=== PATIENT | male | born 1985 | race Hispanic/Latino ===

== ENCOUNTER 2019-01-20 14:19 | Emergency (ER) | payer OTHER ==
[2019-01-20 14:34] VITALS: RESP 16
--- NOTE | 2019-01-20 16:50 | RAD ---
PROCEDURE: Left Knee Radiographs. Four views. HISTORY: knee pain COMPARISON: None available. FINDINGS: BONES: No acute displaced fracture. Well corticated small ossific density inferior to the patella may be related to remote injury. JOINTS: No dislocation. JOINT EFFUSION: No significant joint effusion. OTHER FINDINGS: None. IMPRESSION: No acute displaced fracture, dislocation, or significant joint effusion identified. If symptoms persist, or if there is continued clinical concern, x-ray follow-up in 7-10 days should be considered.
--- NOTE | 2019-01-20 17:00 | ED PDOC ---
Lower Extremity Pain/Injury Time Seen by Provider: 01/20/19 14:20 Chief Complaint (Nursing): Lower Extremity Problem/Injury Chief Complaint (Provider): Right Leg, Left Knee Pain History Per: Patient History/Exam Limitations: no limitations Onset/Duration Of Symptoms: Days (x1) Current Symptoms Are (Timing): Still Present Additional Complaint(s): 33 year old male presents to the ED for XR and MRI scans of his left knee and behind right knee radiating down the calf as per Dr. Mccord referral. Patient states yesterday he was playing softball fielding a ground ball when he went to stand up and felt his right knee/leg and left knee pop. Denies any other physical complaints, numbness, and tingling. PMD: Zarina Past Medical History Reviewed: Historical Data, Nursing Documentation, Vital Signs Vital Signs: Last Vital Signs Temp 97.6 F 01/20/19 14:33 Pulse 76 01/20/19 14:33 Resp 16 01/20/19 14:33 BP 132/74 01/20/19 14:33 Pulse Ox 96 01/20/19 14:33 - Medical History PMH: No Chronic Diseases - Surgical History Surgical History: No Surg Hx - Family History Family History: States: Unknown Family Hx - Social History Current smoker - smoking cessation education provided: Yes Alcohol: Social Drugs: Cannabis - Allergies Allergies/Adverse Reactions: Allergies Allergy/AdvReac Type Severity Reaction Status Date / Time No Known Allergies Allergy Verified 01/20/19 14:32 Review of Systems ROS Statement: Except As Marked, All Systems Reviewed And Found Negative Musculoskeletal: Positive for: Leg Pain (right calf; left knee) Neurological: Negative for: Numbness (or tingling) Physical Exam - Reviewed Nursing Documentation Reviewed: Yes Vital Signs Reviewed: Yes - Physical Exam Appears: Positive for: No Acute Distress Head Exam: Positive for: ATRAUMATIC, NORMOCEPHALIC Skin: Positive for: Normal Color, Warm. Negative for: Rash Eye Exam: Positive for: Normal appearance Cardiovascular/Chest: Positive for: Regular Rate, Rhythm Respiratory: Positive for: Normal Breath Sounds. Negative for: Respiratory Distress Pulses-Dorsalis Pedis (L): 2+ Pulses-Dorsalis Pedis (R): 2+ Gastrointestinal/Abdominal: Positive for: Normal Exam Extremity: Positive for: Capillary Refill (less than 2 s, neurovascular intact), Other (mild tenderness to lateral aspect of L knee). Negative for: Normal ROM (decreased ROM secondary to pain to left knee), Tenderness (non tender r knee or calf, full rom of right leg), Pedal Edema, Calf Tenderness, Deformity, Swelling Neurological/Psych: Positive for: Awake, Alert, Oriented (x3), Other (pt ambulating w steady gait) - ECG O2 Sat by Pulse Oximetry: 96 (RA) Pulse Ox Interpretation: Normal Medical Decision Making Medical Decision Making: Time: 1541 Impression: pmd referral, rightknee radiating down leg pain, left knee pain - dr mccord requested we do MRI in ER Plan: --Left knee XR --600mg PO Ibuprofen --MRI left knee without contrast --MRI right lower extremity --Reevaluation 1904 Patient stable for discharge at this time with MRIs not indicative of acute fracture or dislocation. All questions answered and patient advised to follow up with Dr. Mccord. Dr Mccord at bedside evaluating pt as well. advised pt to take motrin and return if symptosm worsen Scribe Attestation: Documented by Tory Gage, acting as a scribe for Jas Cheek MD. Provider Scribe Attestation: All medical record entries made by the Scribe were at my direction and personally dictated by me. I have reviewed the chart and agree that the record accurately reflects my personal performance of the history, physical exam, medical decision making, and the department course for this patient. I have also personally directed, reviewed, and agree with the discharge instructions and disposition. Disposition - Clinical Impression Clinical Impression: Knee pain - Patient ED Disposition Is Patient to be Admitted: No Counseled Patient/Family Regarding: Studies Performed, Diagnosis, Need For Followup - Disposition Referrals: Adrian Mccord MD [Staff Provider] - Disposition: Routine/Home Disposition Time: 19:08 Condition: IMPROVED Additional Instructions: follow up with Dr Mccord as instructed take motrin for pain return to the ED with any worsening or concerning symptoms Instructions: Knee Pain (DC) Forms: [employer] (Telugu)
[2019-01-20 19:39] VITALS: BP 151/78; PULSE 89; TEMP 98.4
[2019-01-21 11:42] VITALS: O2SAT 96
--- NOTE | 2019-01-21 12:53 | MRI ---
MRI left knee HISTORY: Knee pain. Comparison: None available. Technique: Multi-echo multiplanar sequences were performed through the left knee without the use of intravenous contrast. Findings: Status post anterior cruciate ligament graft repair with screws noted within the distal femur and proximal tibia. There is thinning and attenuation with increased signal seen within the midsubstance of the graft tendon strand fibers suggestive for partial tearing and or high grade sprain of the graft. On the coronal sequences, some graft tendon strand fibers do remain at least partially intact. Subchondral cyst formation is noted within the proximal tibia near the screw measuring up to 5 and 6 millimeters respectively. In addition, some mild increased STIR signal seen surrounding the screw tract within the distal femur. Clinical correlation. Posterior cruciate ligament is preserved. Linear increased signal seen within the posterior horn of the medial meniscus suggestive for grade 1 intrasubstance degeneration with low grade strain at the adjacent posterior meniscocapsular junction. Globular increased signal seen within the posterior horn of the lateral meniscus at the junction with the posterior root attachment demonstrating some questionable extension to the inferior articular surface suggestive for a possible small tear. This is best seen on series 5, images 12-14 as well as series 6, images 25 and 26. Medial collateral ligament is preserved. Lateral collateral ligament complex structures are preserved. Mild distal quadriceps tendinopathy. Patellar tendon is preserved. Mild focal cartilage fibrillation overlying the medial aspect of the lateral patellar facet. Mild cartilage thinning involving the medial compartment of the femorotibial joint space. No significant suprapatellar joint effusion. Impression: 1. Status post anterior cruciate ligament graft repair with screws noted within the distal femur and proximal tibia. There is thinning and attenuation with increased signal seen within the midsubstance of the graft tendon strand fibers suggestive for partial tearing and or high grade sprain of the graft. On the coronal sequences, some graft tendon strand fibers do remain at least partially intact. Subchondral cyst formation is noted within the proximal tibia near the screw measuring up to 5 and 6 millimeters respectively. In addition, some mild increased STIR signal seen surrounding the screw tract within the distal femur. Clinical correlation. 2. Linear increased signal seen within the posterior horn of the medial meniscus suggestive for grade 1 intrasubstance degeneration with low grade strain at the adjacent posterior meniscocapsular junction. 3. Globular increased signal seen within the posterior horn of the lateral meniscus at the junction with the posterior root attachment demonstrating some questionable extension to the inferior articular surface suggestive for a possible small tear. This is best seen on series 5, images 12-14 as well as series 6, images 25 and 26. 4. Mild distal quadriceps tendinopathy. 5. Mild focal cartilage fibrillation overlying the medial aspect of the lateral patellar facet. Mild cartilage thinning involving the medial compartment of the femorotibial joint space.
--- NOTE | 2019-01-21 13:08 | MRI ---
MRI right calf HISTORY: Calf pain. Comparison: None available. Technique: Multi-echo multiplanar sequences were performed through the right calf without the use of intravenous contrast. Findings: Prominent amount of fluid, hemorrhage, and edema seen at the fascial interface between the medial head of the gastrocnemius muscle and soleus muscles suggestive for a possible tear of the plantaris tendon. Clinical correlation. Adjacent prominent increased signal seen within the medial head of the gastrocnemius muscle belly as well as the adjacent soleus muscle belly at those levels suggestive for high grade strains and or partial tears of the muscles. Milder reactive edema seen within the lateral head of the gastrocnemius muscle belly suggestive for a low grade muscle strain. Additional large amount of fluid and edema overlying the more inferior aspect of the soleus muscle medially. Visualized osseous structures are preserved. Impression: 1. Prominent amount of fluid, hemorrhage, and edema seen at the fascial interface between the medial head of the gastrocnemius muscle and soleus muscles suggestive for a possible tear of the plantaris tendon. Clinical correlation. 2. Adjacent prominent increased signal seen within the medial head of the gastrocnemius muscle belly as well as the adjacent soleus muscle belly at those levels suggestive for high grade strains and or partial tears of the muscles. 3. Milder reactive edema seen within the lateral head of the gastrocnemius muscle belly suggestive for a low grade muscle strain. 4. Additional large amount of fluid and edema overlying the more inferior aspect of the soleus muscle medially.
== END 2019-01-20 19:38 | disposition home or self-care (01) ==
LOC: H.ER 14:19
DX: M25.562 Pain in left knee (principal)